=== PATIENT | male | born 1980 | race Caucasian/White ===

== ENCOUNTER 2017-08-24 17:04 | Emergency (ER) | payer SELFPAY ==
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
[2017-08-24 17:11] VITALS: BP 132/91; PULSE 105; RESP 16; TEMP 98.1; O2SAT 92
== END 2017-08-24 17:35 | disposition left against medical advice (07) ==
LOC: EDBD → EDUNIT#
DX: G40.909 Epilepsy, unspecified, not intractable, without status epilepticus (principal); F17.200 Nicotine dependence, unspecified, uncomplicated